=== PATIENT | female | born 1955 | race African-American/Black ===

== ENCOUNTER 2022-05-30 10:22 | Inpatient (IN) | payer MEDICARE, OTHER ==
[2022-05-30 11:15] VITALS: BMI 14.2
[2022-05-30] MEDS ORDERED: METHOCARBAMOL 500 MG TABLET PO PRN (13:08)
[2022-05-30] MEDS ORDERED: NALOXONE HCL (KLOXXADO) 8 MG SPRAY NS PRN (13:08)
[2022-05-30] MEDS ORDERED: LORazepam 1 MG TABLET PO PRN (13:08)
[2022-05-30] MEDS ORDERED: MAG HYDROX/AL HYDROX/SIMETH 30 ML UNIT-DOSE CUP PO PRN (13:08)
[2022-05-30] MEDS ORDERED: ONDANSETRON *ODT* 4 MG TABLET SL PRN (13:08)
[2022-05-30] MEDS ORDERED: LOPERAMIDE HCL 2 MG CAPSULE PO PRN (13:08)
[2022-05-30] MEDS ORDERED: BENZOCAINE/MENTHOL (CHLORASEPTIC ) LOZENGE MM PRN (13:08)
[2022-05-30] MEDS ORDERED: ACETAMINOPHEN 325 MG TABLET (FP) PO PRN ×2 (13:08)
[2022-05-30] MEDS ORDERED: BISMUTH SUBSALICYLATE 524 MG/30 ML PO PRN (13:08)
[2022-05-30] MEDS ORDERED: IBUPROFEN 400 MG TABLET (FP) PO PRN (13:08)
[2022-05-30] MEDS ORDERED: NICOTINE 10 MG CARTRIDGE (INHALER) IH PRN (13:08)
[2022-05-30] MEDS ORDERED: LORazepam 2 MG TABLET PO ONE (13:08)
[2022-05-30] MEDS ORDERED: DICYCLOMINE HCL 10 MG CAPSULE PO PRN (13:08)
[2022-05-30] MEDS ORDERED: IBUPROFEN 600 MG TABLET (FP) PO PRN (13:08)
[2022-05-30] MEDS ORDERED: MAGNESIUM CITRATE 300 ML BOTTLE PO PRN (13:08)
[2022-05-30] MEDS ORDERED: MAGNESIUM HYDROX 2400MG/30ML ORAL SUSPENSION 30 ML CUP PO PRN (13:08)
[2022-05-30] MEDS: hydrOXYzine PAMOATE 25 MG CAPSULE (FP) PO SCH ×3 (14:38→22:51)
[2022-05-30] MEDS: LORazepam 2 MG TABLET PO SCH ×2 (17:36→22:52)
[2022-05-30] MEDS: ATORVASTATIN CA 20 MG TABLET (FP) PO SCH (22:52)
[2022-05-30] MEDS: FAMOTIDINE 20 MG TABLET PO SCH (22:52)
[2022-05-30] MEDS: THIAMINE HCL 100 MG TABLET (FP) PO SCH (22:52)
[2022-05-30] MEDS: MELATONIN 5 MG TABLETS PO SCH (22:52)
[2022-05-31] MEDS: LORazepam 2 MG TABLET PO SCH ×4 (05:52→22:13)
[2022-05-31] MEDS: hydrOXYzine PAMOATE 25 MG CAPSULE (FP) PO SCH ×5 (05:52→22:13)
[2022-05-31] MEDS: PRENATAL VITAMINS W/ FOLIC ACID TABLET (FP) PO SCH (10:09)
[2022-05-31] MEDS: THIAMINE HCL 100 MG TABLET (FP) PO SCH (22:13)
[2022-05-31] MEDS: FAMOTIDINE 20 MG TABLET PO SCH (22:13)
[2022-05-31] MEDS: ATORVASTATIN CA 20 MG TABLET (FP) PO SCH (22:13)
[2022-05-31] MEDS: MELATONIN 5 MG TABLETS PO SCH (22:56)
[2022-06-01] MEDS: LORazepam 1 MG TABLET PO SCH ×2 (05:50→10:24)
[2022-06-01] MEDS: hydrOXYzine PAMOATE 25 MG CAPSULE (FP) PO SCH ×2 (05:50→10:22)
[2022-06-01 09:44] VITALS: RESP 17
[2022-06-01] MEDS: PRENATAL VITAMINS W/ FOLIC ACID TABLET (FP) PO SCH (10:22)
[2022-06-01 12:56] VITALS: BP 126/78; PULSE 88; TEMP 97.2
[2022-06-01] MEDS ORDERED: hydrOXYzine PAMOATE 25 MG CAPSULE (FP) PO PRN (13:23)
[2022-06-02] MEDS ORDERED: LORazepam 0.5 MG TABLET PO PRN
[2022-06-02] MEDS ORDERED: LORazepam 0.5 MG TABLET PO SCH (05:00)
[2022-06-03] MEDS ORDERED: LORazepam 0.5 MG TABLET PO ONE (05:00)
== END 2022-06-01 17:38 | disposition left against medical advice (07) | DRG 894 ==
LOC: YASAS 10:22 → Y3N 13:23
PROVIDERS: ADMIT Allergy & Immunology; ATTEND Surgery
PROC: HZ2ZZZZ Detoxification Services for Substance Abuse Treatment (ICD-10-PCS; principal; 2022-05-30)
DX: F10.230 Alcohol dependence with withdrawal, uncomplicated (principal); F11.20 Opioid dependence, uncomplicated; F17.210 Nicotine dependence, cigarettes, uncomplicated; F19.24 Other psychoactive substance dependence with psychoactive substance-induced mood disorder; E78.00 Pure hypercholesterolemia, unspecified; K21.9 Gastro-esophageal reflux disease without esophagitis
CPT/HCPCS: 87811; 93005; 93010; C9803-CS; U0003; U0005